=== PATIENT | male | born 1950 | race Caucasian/White ===

== ENCOUNTER 2021-09-01 19:15 | Inpatient (IN) ==
[2021-09-01] MEDS ORDERED: Diphenoxylate/Atropine 1 TAB TABLET PO PRN (22:26)
[2021-09-01] MEDS ORDERED: *HR* Dextrose 50 % in Water (Syg) 50 ML SYRINGE IVP PRN (22:28)
[2021-09-01] MEDS ORDERED: D5% in Water 1,000 ML IVC PRN (22:28)
[2021-09-01] MEDS ORDERED: Dextrose Gel 15 GM/37.5 ML TUBE PO PRN ×2 (22:28)
[2021-09-02 07:11] LABS: Basophils % 0.4 %; Eosinophils # 0.2 K/mcL (0.0-0.6); Eosinophils % 2.1 %; Hematocrit 38.9 % (37.5-50.1); Hemoglobin 12.3 g/dL (12.9-16.9); Immature Granulocytes % 0.7 % (0-4); Lymphocytes # 1.4 K/mcL (0.6-4.6); Lymphocytes % 16.5 %; Mean Corpuscular HGB Conc 31.6 g/dL (31.6-35.5); Mean Corpuscular Hemoglobin 27.7 pg (28.0-33.3); Mean Corpuscular Volume 87.6 fL (83.0-100.0); Mean Platelet Volume 9.9 fL (9.4-12.4); Monocytes # 0.7 K/mcL (0.0-1.3); Neutrophils # 5.9 K/mcL (1.6-8.9); Platelet Count 320 K/mcL (140-400); Red Blood Count 4.44 M/mcL (4.19-5.50); Red Cell Distribution Width 18.6 % (11.5-14.5); Segmented Neutrophils % 71.3 %; White Blood Count 8.2 K/mcL (4.3-11.1)
[2021-09-02 08:09] LABS: Calcium 9.3 mg/dL (8.6-10.3); Potassium 3.8 mEq/L (3.5-5.1)
[2021-09-02] MEDS ORDERED: Insulin DETEMIR 100 UNIT/ML per UNIT SUBQ SCH (09:00)
[2021-09-02] MEDS ORDERED: Furosemide 40 MG TABLET PO SCH (09:00)
[2021-09-02] MEDS: Insulin LISPRO 300 UNITS/3 ML VIAL SUBQ SCH ×4 (09:41→21:05)
[2021-09-02] MEDS: Cefdinir 300 MG CAPSULE PO SCH ×2 (09:42→20:59)
[2021-09-02] MEDS: Insulin DETEMIR 100 UNIT/ML X5UNITS SUBQ SCH ×2 (09:42→21:05)
[2021-09-02] MEDS: Metoprolol XL (24 HR) Succ 50 MG TAB.ER.24H PO SCH ×2 (09:42→20:59)
[2021-09-02] MEDS: *HR* Metformin 500 MG TABLET PO SCH (09:42)
[2021-09-02] MEDS: *HR* Ticagrelor 90 MG TABLET PO SCH ×2 (09:42→20:59)
[2021-09-02] MEDS: Spironolactone 12.5 MG TABLET PO SCH (09:42)
[2021-09-02] MEDS: Aspirin 81 MG TAB.CHEW PO SCH (09:42)
[2021-09-02] MEDS: Sacubitril/Valsartan 24/26 MG 1 TABLET PO SCH ×2 (09:42→21:05)
[2021-09-02] MEDS: Budesonide/Formoterol 80/4.5 1 PUFF INH IH SCH ×2 (12:06→23:33)
[2021-09-03] MEDS: Insulin LISPRO 300 UNITS/3 ML VIAL SUBQ SCH ×4 (08:11→21:49)
[2021-09-03] MEDS: Budesonide/Formoterol 80/4.5 1 PUFF INH IH SCH ×2 (09:44→23:12)
[2021-09-03] MEDS: Insulin DETEMIR 100 UNIT/ML X5UNITS SUBQ SCH ×2 (10:04→21:48)
[2021-09-03] MEDS: Metoprolol XL (24 HR) Succ 50 MG TAB.ER.24H PO SCH ×2 (10:04→21:48)
[2021-09-03] MEDS: Cefdinir 300 MG CAPSULE PO SCH ×2 (10:04→22:06)
[2021-09-03] MEDS: Furosemide 40 MG TABLET PO SCH (10:04)
[2021-09-03] MEDS: *HR* Ticagrelor 90 MG TABLET PO SCH ×2 (10:04→21:52)
[2021-09-03] MEDS: Sacubitril/Valsartan 24/26 MG 1 TABLET PO SCH ×2 (10:04→21:48)
[2021-09-03] MEDS: Spironolactone 12.5 MG TABLET PO SCH (10:04)
[2021-09-03] MEDS: Aspirin 81 MG TAB.CHEW PO SCH (10:04)
[2021-09-04] MEDS: Sacubitril/Valsartan 24/26 MG 1 TABLET PO SCH ×2 (07:47→22:41)
[2021-09-04] MEDS: Spironolactone 12.5 MG TABLET PO SCH (07:48)
[2021-09-04] MEDS: Aspirin 81 MG TAB.CHEW PO SCH (07:48)
[2021-09-04] MEDS: Furosemide 40 MG TABLET PO SCH (07:48)
[2021-09-04] MEDS: *HR* Ticagrelor 90 MG TABLET PO SCH ×2 (07:48→22:40)
[2021-09-04] MEDS: Metoprolol XL (24 HR) Succ 50 MG TAB.ER.24H PO SCH ×2 (07:48→22:40)
[2021-09-04] MEDS: *HR* Metformin 500 MG TABLET PO SCH (07:48)
[2021-09-04] MEDS: Cefdinir 300 MG CAPSULE PO SCH ×2 (07:48→22:40)
[2021-09-04] MEDS: Insulin LISPRO 300 UNITS/3 ML VIAL SUBQ SCH ×4 (07:49→22:41)
[2021-09-04] MEDS: Budesonide/Formoterol 80/4.5 1 PUFF INH IH SCH ×2 (08:27→22:08)
[2021-09-04] MEDS: Insulin DETEMIR 100 UNIT/ML X5UNITS SUBQ SCH ×2 (09:15→22:41)
[2021-09-04 09:52] LABS: Calcium 9.5 mg/dL (8.6-10.3); Potassium 4.1 mEq/L (3.5-5.1)
[2021-09-04] MEDS ORDERED: Benzonatate 100 MG CAPSULE PO PRN (18:21)
[2021-09-05] MEDS: Budesonide/Formoterol 80/4.5 1 PUFF INH IH SCH ×2 (09:29→21:31)
[2021-09-05] MEDS: Aspirin 81 MG TAB.CHEW PO SCH (09:52)
[2021-09-05] MEDS: *HR* Ticagrelor 90 MG TABLET PO SCH ×2 (09:53→20:25)
[2021-09-05] MEDS: Metoprolol XL (24 HR) Succ 50 MG TAB.ER.24H PO SCH ×2 (09:53→20:25)
[2021-09-05] MEDS: *HR* Metformin 500 MG TABLET PO SCH (09:53)
[2021-09-05] MEDS: Furosemide 40 MG TABLET PO SCH (09:53)
[2021-09-05] MEDS: Spironolactone 12.5 MG TABLET PO SCH (09:53)
[2021-09-05] MEDS: Sacubitril/Valsartan 24/26 MG 1 TABLET PO SCH ×2 (09:53→20:29)
[2021-09-05] MEDS: Insulin DETEMIR 100 UNIT/ML X5UNITS SUBQ SCH ×2 (09:53→20:31)
[2021-09-05] MEDS: Cefdinir 300 MG CAPSULE PO SCH ×2 (09:53→20:24)
[2021-09-05] MEDS: Insulin LISPRO 300 UNITS/3 ML VIAL SUBQ SCH ×4 (09:55→20:29)
[2021-09-06 08:39] LABS: BUN/Creatinine Ratio 40 (6-26); Blood Urea Nitrogen 55 mg/dL (8-23); Calcium 9.1 mg/dL (8.6-10.3); Carbon Dioxide 30 mEq/L (23-29); Chloride 102 mEq/L (98-107); Glucose 170 mg/dL (70-105); Osmolality,Calculated 309 (280-300); Potassium 3.9 mEq/L (3.5-5.1); Sodium 140 mEq/L (136-145); eGFR For African Americans > 60 (> 60); eGFR For Non-African Americans 51 (> 60)
[2021-09-06] MEDS: *HR* Metformin 500 MG TABLET PO SCH (10:33)
[2021-09-06] MEDS: Aspirin 81 MG TAB.CHEW PO SCH (10:33)
[2021-09-06] MEDS: Spironolactone 12.5 MG TABLET PO SCH (10:33)
[2021-09-06] MEDS: *HR* Ticagrelor 90 MG TABLET PO SCH ×2 (10:33→20:44)
[2021-09-06] MEDS: Metoprolol XL (24 HR) Succ 50 MG TAB.ER.24H PO SCH ×2 (10:34→20:47)
[2021-09-06] MEDS: Cefdinir 300 MG CAPSULE PO SCH ×2 (10:34→20:44)
[2021-09-06] MEDS: Furosemide 40 MG TABLET PO SCH (10:34)
[2021-09-06] MEDS: Insulin LISPRO 300 UNITS/3 ML VIAL SUBQ SCH ×4 (10:34→21:28)
[2021-09-06] MEDS: Budesonide/Formoterol 80/4.5 1 PUFF INH IH SCH ×2 (10:47→23:37)
[2021-09-06] MEDS: Insulin DETEMIR 100 UNIT/ML X5UNITS SUBQ SCH ×2 (11:01→20:46)
[2021-09-06] MEDS: Sacubitril/Valsartan 24/26 MG 1 TABLET PO SCH ×2 (11:01→20:45)
[2021-09-06 23:59] LABS: Bilirubin,Urine Negative (Negative); Blood,Urine Small (Negative); Clarity,Urine Clear (Clear); Color,Urine Yellow (Yellow); Glucose,Urine (UA) Normal (Normal); Ketones,Urine Negative (Negative); Leukocyte Esterase,Urine Moderate (Negative); Nitrite,Urine Positive (Negative); PH,Urine 5.5 pH Units (5.0-8.0); Protein,Urine Negative (Neg-Trace); Specific Gravity,Urine 1.015 (1.010-1.025); Urobilinogen,Urine Normal (Normal)
[2021-09-07 00:06] LABS: WBC,Urine 50-100 per hpf (0-3)
[2021-09-07] MEDS: Insulin DETEMIR 100 UNIT/ML X5UNITS SUBQ SCH ×2 (09:17→21:24)
[2021-09-07] MEDS: Metoprolol XL (24 HR) Succ 50 MG TAB.ER.24H PO SCH ×2 (09:18→21:23)
[2021-09-07] MEDS: Insulin LISPRO 300 UNITS/3 ML VIAL SUBQ SCH ×4 (09:18→21:24)
[2021-09-07] MEDS: *HR* Ticagrelor 90 MG TABLET PO SCH ×2 (09:18→21:23)
[2021-09-07] MEDS: Cefdinir 300 MG CAPSULE PO SCH ×2 (09:18→21:23)
[2021-09-07] MEDS: Spironolactone 12.5 MG TABLET PO SCH (09:18)
[2021-09-07] MEDS: Aspirin 81 MG TAB.CHEW PO SCH (09:18)
[2021-09-07] MEDS: Furosemide 40 MG TABLET PO SCH (09:18)
[2021-09-07] MEDS: *HR* Metformin 500 MG TABLET PO SCH (09:18)
[2021-09-07] MEDS: Sacubitril/Valsartan 24/26 MG 1 TABLET PO SCH ×2 (09:28→21:23)
[2021-09-07] MEDS: Budesonide/Formoterol 80/4.5 1 PUFF INH IH SCH ×2 (11:20→21:40)
[2021-09-08] MEDS: Budesonide/Formoterol 80/4.5 1 PUFF INH IH SCH ×2 (10:00→22:34)
[2021-09-08] MEDS: Metoprolol XL (24 HR) Succ 50 MG TAB.ER.24H PO SCH ×2 (10:38→22:31)
[2021-09-08] MEDS: *HR* Metformin 500 MG TABLET PO SCH (10:38)
[2021-09-08] MEDS: Aspirin 81 MG TAB.CHEW PO SCH (10:38)
[2021-09-08] MEDS: Sacubitril/Valsartan 24/26 MG 1 TABLET PO SCH ×2 (10:38→22:36)
[2021-09-08] MEDS: Furosemide 40 MG TABLET PO SCH (10:39)
[2021-09-08] MEDS: Cefdinir 300 MG CAPSULE PO SCH ×2 (10:39→22:31)
[2021-09-08] MEDS: Insulin DETEMIR 100 UNIT/ML X5UNITS SUBQ SCH ×2 (10:39→22:37)
[2021-09-08] MEDS: Insulin LISPRO 300 UNITS/3 ML VIAL SUBQ SCH ×4 (10:40→22:10)
[2021-09-08] MEDS: *HR* Ticagrelor 90 MG TABLET PO SCH ×2 (10:44→22:31)
[2021-09-08] MEDS: Spironolactone 12.5 MG TABLET PO SCH (10:44)
[2021-09-09] MEDS: Insulin LISPRO 300 UNITS/3 ML VIAL SUBQ SCH ×4 (09:16→22:27)
[2021-09-09] MEDS: Cefdinir 300 MG CAPSULE PO SCH ×2 (09:17→22:26)
[2021-09-09] MEDS: Aspirin 81 MG TAB.CHEW PO SCH (09:17)
[2021-09-09] MEDS: *HR* Ticagrelor 90 MG TABLET PO SCH ×2 (09:17→22:30)
[2021-09-09] MEDS: Insulin DETEMIR 100 UNIT/ML X5UNITS SUBQ SCH ×2 (09:17→22:27)
[2021-09-09] MEDS: Spironolactone 12.5 MG TABLET PO SCH (09:17)
[2021-09-09] MEDS: Furosemide 40 MG TABLET PO SCH (09:17)
[2021-09-09] MEDS: Sacubitril/Valsartan 24/26 MG 1 TABLET PO SCH ×2 (09:17→22:26)
[2021-09-09] MEDS: Metoprolol XL (24 HR) Succ 50 MG TAB.ER.24H PO SCH ×2 (09:17→22:26)
[2021-09-09] MEDS: *HR* Metformin 500 MG TABLET PO SCH (09:17)
[2021-09-09] MEDS: Budesonide/Formoterol 80/4.5 1 PUFF INH IH SCH ×2 (09:41→23:07)
[2021-09-10] MEDS: Spironolactone 12.5 MG TABLET PO SCH (08:38)
[2021-09-10] MEDS: Insulin LISPRO 300 UNITS/3 ML VIAL SUBQ SCH ×4 (08:38→20:44)
[2021-09-10] MEDS: Metoprolol XL (24 HR) Succ 50 MG TAB.ER.24H PO SCH ×2 (08:39→20:45)
[2021-09-10] MEDS: *HR* Metformin 500 MG TABLET PO SCH (08:39)
[2021-09-10] MEDS: Insulin DETEMIR 100 UNIT/ML X5UNITS SUBQ SCH ×2 (08:39→20:46)
[2021-09-10] MEDS: Aspirin 81 MG TAB.CHEW PO SCH (08:39)
[2021-09-10] MEDS: Furosemide 40 MG TABLET PO SCH (08:39)
[2021-09-10] MEDS: *HR* Ticagrelor 90 MG TABLET PO SCH ×2 (08:39→20:46)
[2021-09-10] MEDS: Sacubitril/Valsartan 24/26 MG 1 TABLET PO SCH ×2 (08:39→20:45)
[2021-09-10] MEDS: Cefdinir 300 MG CAPSULE PO SCH ×2 (08:39→20:45)
[2021-09-10] MEDS: Budesonide/Formoterol 80/4.5 1 PUFF INH IH SCH ×2 (10:29→21:20)
[2021-09-11] MEDS: Metoprolol XL (24 HR) Succ 50 MG TAB.ER.24H PO SCH ×2 (08:04→20:07)
[2021-09-11] MEDS: Spironolactone 12.5 MG TABLET PO SCH (08:04)
[2021-09-11] MEDS: Insulin LISPRO 300 UNITS/3 ML VIAL SUBQ SCH ×4 (08:05→20:23)
[2021-09-11] MEDS: Aspirin 81 MG TAB.CHEW PO SCH (08:05)
[2021-09-11] MEDS: Furosemide 40 MG TABLET PO SCH (08:05)
[2021-09-11] MEDS: *HR* Ticagrelor 90 MG TABLET PO SCH ×2 (08:05→20:23)
[2021-09-11] MEDS: Cefdinir 300 MG CAPSULE PO SCH ×2 (08:05→20:23)
[2021-09-11] MEDS: *HR* Metformin 500 MG TABLET PO SCH (08:05)
[2021-09-11] MEDS: Sacubitril/Valsartan 24/26 MG 1 TABLET PO SCH ×2 (08:12→20:23)
[2021-09-11] MEDS: Insulin DETEMIR 100 UNIT/ML X5UNITS SUBQ SCH ×2 (08:33→20:22)
[2021-09-11] MEDS: Budesonide/Formoterol 80/4.5 1 PUFF INH IH SCH ×2 (10:02→20:10)
[2021-09-11] MEDS ORDERED: IVABRADINE HCL 7.5 MG TABLET PO SCH (17:00)
[2021-09-12] MEDS: Metoprolol XL (24 HR) Succ 50 MG TAB.ER.24H PO SCH (08:41)
[2021-09-12] MEDS: Furosemide 40 MG TABLET PO SCH (08:41)
[2021-09-12] MEDS: Spironolactone 12.5 MG TABLET PO SCH (08:43)
[2021-09-12] MEDS: *HR* Metformin 500 MG TABLET PO SCH (08:43)
[2021-09-12] MEDS: Cefdinir 300 MG CAPSULE PO SCH (08:43)
[2021-09-12] MEDS: Aspirin 81 MG TAB.CHEW PO SCH (08:43)
[2021-09-12] MEDS: Sacubitril/Valsartan 24/26 MG 1 TABLET PO SCH ×2 (08:43→22:13)
[2021-09-12] MEDS: *HR* Ticagrelor 90 MG TABLET PO SCH ×2 (08:43→22:13)
[2021-09-12] MEDS: Insulin LISPRO 300 UNITS/3 ML VIAL SUBQ SCH ×4 (08:44→22:15)
[2021-09-12] MEDS: Insulin DETEMIR 100 UNIT/ML X5UNITS SUBQ SCH ×2 (08:46→21:50)
[2021-09-12] MEDS: Budesonide/Formoterol 80/4.5 1 PUFF INH IH SCH ×2 (10:08→22:48)
[2021-09-13] MEDS: Metoprolol XL (24 HR) Succ 50 MG TAB.ER.24H PO SCH ×3 (00:14→20:01)
[2021-09-13] MEDS: Aspirin 81 MG TAB.CHEW PO SCH (09:12)
[2021-09-13] MEDS: Insulin DETEMIR 100 UNIT/ML X5UNITS SUBQ SCH ×2 (09:12→20:03)
[2021-09-13] MEDS: *HR* Metformin 500 MG TABLET PO SCH (09:13)
[2021-09-13] MEDS: *HR* Ticagrelor 90 MG TABLET PO SCH ×2 (09:13→20:01)
[2021-09-13] MEDS: Spironolactone 12.5 MG TABLET PO SCH (09:14)
[2021-09-13] MEDS: Sacubitril/Valsartan 24/26 MG 1 TABLET PO SCH ×2 (09:14→20:01)
[2021-09-13] MEDS: Furosemide 40 MG TABLET PO SCH (09:14)
[2021-09-13] MEDS: Insulin LISPRO 300 UNITS/3 ML VIAL SUBQ SCH ×4 (09:15→20:16)
[2021-09-13] MEDS: Budesonide/Formoterol 80/4.5 1 PUFF INH IH SCH ×2 (09:38→22:35)
[2021-09-14 07:06] VITALS: BP 113/77; PULSE 80; TEMP 98.1
[2021-09-14] MEDS: Budesonide/Formoterol 80/4.5 1 PUFF INH IH SCH (08:07)
[2021-09-14 08:12] VITALS: RESP 18
[2021-09-14] MEDS: Insulin DETEMIR 100 UNIT/ML X5UNITS SUBQ SCH (08:29)
[2021-09-14] MEDS: Furosemide 40 MG TABLET PO SCH (08:30)
[2021-09-14] MEDS: *HR* Metformin 500 MG TABLET PO SCH (08:30)
[2021-09-14] MEDS: *HR* Ticagrelor 90 MG TABLET PO SCH (08:30)
[2021-09-14] MEDS: Aspirin 81 MG TAB.CHEW PO SCH (08:30)
[2021-09-14] MEDS: Metoprolol XL (24 HR) Succ 50 MG TAB.ER.24H PO SCH (08:30)
[2021-09-14] MEDS: Sacubitril/Valsartan 24/26 MG 1 TABLET PO SCH (08:31)
[2021-09-14] MEDS: Spironolactone 12.5 MG TABLET PO SCH (08:31)
[2021-09-14] MEDS: Insulin LISPRO 300 UNITS/3 ML VIAL SUBQ SCH ×2 (08:32→12:03)
[2021-09-14 09:58] VITALS: O2SAT 97
== END 2021-09-14 15:36 | DRG 280 ==
LOC: INPPIK 09-02 04:12
PROVIDERS: ADMIT Internal Medicine; ATTEND Internal Medicine